=== PATIENT | female | born 1980 | race Caucasian/White ===

== ENCOUNTER 2019-08-22 07:29 | Day surgery (SDC) | payer BC ==
[~2019-08-22] VITALS: Ht 165.1 cm; Wt 46.9 kg
[2019-08-22 07:45] VITALS: BP 107/72; PULSE 75; TEMP 98.1
[2019-08-22] MEDS ORDERED: PRIL40 PO (07:49)
[2019-08-22 09:30] VITALS: BP 98/66; PULSE 72; TEMP 98.6
--- NOTE | 2019-08-22 09:30 | NUR ---
TO BAY 3 PER CART FROM ENDOSCOPY. ALERT ORIENTED X3, TALKING TO STAFF AND FAMILY. RECEIVED WATER AND TOLERATING WELL.
[2019-08-22 09:45] VITALS: BP 93/61; PULSE 63
--- NOTE | 2019-08-22 09:45 | NUR ---
DR SUAZO INTO TALK WITH PATIENT AND HER FAMILY. RECEIVED JELLO- ATE 100% AND TOLERATED WELL.
--- NOTE | 2019-08-22 10:05 | NUR ---
RECEIVED DISCHARGE INSTRUCTIONS AND VERBALIZED UNDERSTANDING. DISCONTINUED IV AND INT- CATHETER INTACT.
--- NOTE | 2019-08-22 10:15 | NUR ---
DISCHARGED PER WC BY NURSING STAFF TO PRIVATE CAR IN CARE OF SISTER.
== END 2019-08-22 10:20 | disposition home or self-care (01) ==
LOC: SDCO 07:29
DX: K21.9 Gastro-esophageal reflux disease without esophagitis (principal); E66.9 Obesity, unspecified; F41.8 Other specified anxiety disorders; Z90.710 Acquired absence of both cervix and uterus; Z87.891 Personal history of nicotine dependence; Z90.49 Acquired absence of other specified parts of digestive tract; Z68.33 Body mass index [BMI] 33.0-33.9, adult
CPT/HCPCS: J2250; J3010